=== PATIENT | male | born 1995 | race Caucasian/White ===

== ENCOUNTER 2018-04-21 19:22 | Emergency (ER) | payer SELFPAY ==
[2018-04-21] MEDS ORDERED: Sodium Chloride 0.9% 10 ML Syringe FLUSH PRN (19:42)
[2018-04-21] MEDS ORDERED: Sodium Chloride 0.9% 1,000 ML IV ONE (19:42)
[2018-04-21] MEDS ORDERED: Sodium Chloride 0.9% 2.5 ML Syringe FLUSH PRN (19:42)
--- NOTE | 2018-04-21 19:52 | EDM.PDOC ---
ED HPI GENERAL MEDICAL PROBLEM - General Chief Complaint: Abdominal Pain Stated Complaint: PAIN ON LT SIDE Time Seen by Provider: 04/21/18 19:48 Source of Information: Reports: Patient History Limitations: Reports: No Limitations - History of Present Illness INITIAL COMMENTS - FREE TEXT/NARRATIVE: HISTORY AND PHYSICAL: History of present illness: Patient 22-year-old male here with complaint of left-sided abdominal pain that started this morning. He states the pain started up in the left lower rib and has now spread full left side of his abdomen. Patient states that he has had watery diarrhea the past 2 days. He denies any fevers, chills, nausea, vomiting , cough, chest pain, shortness of breath, hematochezia, melena. He denies any previous abdominal surgeries. Patient recently moved here from [place] and has no primary care provider. Review of systems: As per history of present illness and below otherwise all systems reviewed and negative. Past medical history: Hypertension Surgical history: As per history of present illness and as reviewed below otherwise noncontributory. Social history: No reported history of drug or alcohol abuse. Family history: As per history of present illness and as reviewed below otherwise noncontributory. Physical exam: General: Patient sitting comfortably in no acute distress and nontoxic appearing HEENT: Atraumatic, normocephalic, pupils reactive, negative for conjunctival pallor or scleral icterus, mucous membranes moist, throat clear, neck supple, nontender, trachea midline. No meningeal signs. Lungs: Clear to auscultation, breath sounds equal bilaterally, chest nontender. Heart: S1S2, regular, negative for clicks, rubs, or overt murmur. Abdomen: Patient has moderate left lower and left upper tenderness to palpation. He has significant tenderness to palpation of the left lower ribs. Obese, Soft, nondistended, Negative for masses or hepatosplenomegaly. Left CVA tenderness. Pelvis: Stable nontender. Genitourinary: Deferred. Rectal: Deferred. Extremities: Atraumatic, negative for cords or calf pain. Neurovascular unremarkable. Neuro: Awake, alert, oriented. Cranial nerves II through XII unremarkable. Cerebellum unremarkable. Motor and sensory unremarkable throughout. Exam nonfocal. Notes: Diagnostics: CBC, CMP, UA CT abdomen/pelvis Therapeutics: 1 L normal saline IV Toradol 30mg IV Prescriptions: None Impression: Gastroenteritis Plan: 1. Drink plenty of fluids and bland food as tolerated 2. Follow up with primary care provider 3. Return to ED as needed as discussed Definitive disposition and diagnosis as appropriate pending reevaluation and review of above. LLQ Pain Score (Numeric/FACES): 7 - Related Data Allergies Allergy/AdvReac Type Severity Reaction Status Date / Time No Known Allergies Allergy Verified 04/21/18 19:38 Home Meds: Home Meds . [No Known Home Meds] 04/21/18 [History] Past Medical History HEENT History: Reports: None Cardiovascular History: Reports: Hypertension Respiratory History: Reports: Asthma Gastrointestinal History: Reports: None Genitourinary History: Reports: None Musculoskeletal History: Reports: None Neurological History: Reports: None Psychiatric History: Reports: None Endocrine/Metabolic History: Reports: None Dermatologic History: Reports: None - Infectious Disease History Infectious Disease History: Reports: Chicken Pox - Past Surgical History Male Surgical History: Reports: None Social & Family History - Family History Family Medical History: Noncontributory - Tobacco Use Smoking Status *Q: Current Every Day Smoker Years of Tobacco use: 2 Packs/Tins Daily: 0.5 Second Hand Smoke Exposure: Yes - Recreational Drug Use Recreational Drug Use: No ED ROS GENERAL - Review of Systems Review Of Systems: ROS reveals no pertinent complaints other than HPI. ED EXAM, GI/ABD - Physical Exam Exam: See Below (See dictation) Course - Vital Signs Last Recorded V/S: Last Vital Signs Temp 37.1 C 04/21/18 19:38 Pulse 96 04/21/18 19:38 Resp 18 04/21/18 19:38 BP 156/96 H 04/21/18 19:38 Pulse Ox 97 04/21/18 19:38 - Orders/Labs/Meds Orders: Active Orders 24 hr Category Date Time Status Abdomen Pelvis w Cont [CT] Stat Exams 04/21/18 19:53 Taken UA W/MICROSCOPIC [URIN] Stat Lab 04/21/18 21:38 Ordered Sodium Chloride 0.9% [Saline Flush] Med 04/21/18 19:42 Active 10 ml FLUSH ASDIRECTED PRN Sodium Chloride 0.9% [Saline Flush] Med 04/21/18 19:42 Active 2.5 ml FLUSH ASDIRECTED PRN Saline Lock Insert [OM.PC] Stat Oth 04/21/18 19:41 Ordered Medication Orders Sodium Chloride (Saline Flush) 10 ml FLUSH ASDIRECTED PRN PRN Reason: Keep Vein Open Last Admin: 04/21/18 20:17 Dose: 10 ml Sodium Chloride (Saline Flush) 2.5 ml FLUSH ASDIRECTED PRN PRN Reason: Keep Vein Open Last Admin: 04/21/18 20:18 Dose: 2.5 ml Labs: Laboratory Tests 04/21/18 04/21/18 04/21/18 Range/Units 20:05 20:05 21:38 WBC 9.08 (4.0-11.0) K/uL RBC 5.31 (4.50-5.90) M/uL Hgb 17.9 H (13.0-17.0) g/dL Hct 47.6 (38.0-50.0) % MCV 89.6 (80.0-98.0) fL MCH 33.7 H (27.0-32.0) pg MCHC 37.6 H (31.0-37.0) g/dL RDW Std Deviation 41.8 (28.0-62.0) fl RDW Coeff of Ezra 13 (11.0-15.0) % Plt Count 238 (150-400) K/uL MPV 11.30 (7.40-12.00) fL Neut % (Auto) 48.1 (48.0-80.0) % Lymph % (Auto) 31.6 (16.0-40.0) % [place] % (Auto) 12.7 (0.0-15.0) % Eos % (Auto) 7.2 H (0.0-7.0) % Baso % (Auto) 0.4 (0.0-1.5) % Neut # (Auto) 4.4 (1.4-5.7) K/uL Lymph # (Auto) 2.9 H (0.6-2.4) K/uL [place] # (Auto) 1.2 H (0.0-0.8) K/uL Eos # (Auto) 0.7 (0.0-0.7) K/uL Baso # (Auto) 0.0 (0.0-0.1) K/uL Nucleated RBC % 0.0 /100WBC Nucleated RBCs # 0 K/uL Sodium 138 (136-148) mmol/L Potassium 3.8 (3.5-5.1) mmol/L Chloride 102 (98-107) mmol/L Carbon Dioxide 30.1 (21.0-32.0) mmol/L BUN 13 (7.0-18.0) mg/dL Creatinine 1.1 (0.8-1.3) mg/dL Est Cr Clr Drug Dosing 121.43 mL/min Estimated GFR (MDRD) > 60.0 ml/min Glucose 140 H (74-106) mg/dL Calcium 9.3 (8.5-10.1) mg/dL Total Bilirubin 0.5 (0.2-1.0) mg/dL AST 37 (15-37) IU/L ALT 101 H (14-63) IU/L Alkaline Phosphatase 106 (46-116) U/L Total Protein 7.6 (6.4-8.2) g/dL Albumin 4.3 (3.4-5.0) g/dL Globulin 3.3 (2.0-3.5) g/dL Albumin/Globulin Ratio 1.3 (1.3-2.8) Lipase 261 (73-393) U/L Urine Color YELLOW Urine Appearance CLEAR Urine pH 6.0 (5.0-8.0) Ur Specific [place] <= 1.005 (1.001-1.035) Urine Protein NEGATIVE (NEGATIVE) mg/dL Urine Glucose (UA) NEGATIVE (NEGATIVE) mg/dL Urine Ketones NEGATIVE (NEGATIVE) mg/dL Urine Occult Blood NEGATIVE (NEGATIVE) Urine Nitrite NEGATIVE (NEGATIVE) Urine Bilirubin NEGATIVE (NEGATIVE) Urine Urobilinogen 0.2 (<2.0) EU/dL Ur Leukocyte Esterase NEGATIVE (NEGATIVE) Urine RBC 0-1 (0-2/HPF) Urine WBC 0-2 (0-5/HPF) Ur Epithelial Cells RARE (NONE-FEW) Urine Bacteria FEW (NEGATIVE) Meds: Medications Generic Name Dose Route Start Last Admin Trade Name Freq PRN Reason Stop Dose Admin Sodium Chloride 10 ml 04/21/18 19:42 04/21/18 20:17 Saline Flush FLUSH 10 ml ASDIRECTED PRN Administration Keep Vein Open Sodium Chloride 2.5 ml 04/21/18 19:42 04/21/18 20:18 Saline Flush FLUSH 2.5 ml ASDIRECTED PRN Administration Keep Vein Open Discontinued Medications Generic Name Dose Route Start Last Admin Trade Name [place] PRN Reason Stop Dose Admin Sodium Chloride 1,000 mls @ 999 mls/hr 04/21/18 19:42 04/21/18 20:17 Normal Saline IV 04/21/18 20:42 999 mls/hr STAT ONE Administration Iopamidol 100 ml 04/21/18 21:28 04/21/18 21:28 Isovue Multipack-370 (76%) IVPUSH 04/21/18 21:29 100 ml ONETIME STA Administration Ketorolac Tromethamine 30 mg 04/21/18 20:48 04/21/18 20:51 Toradol IVPUSH 04/21/18 20:49 30 mg ONETIME ONE Administration Departure - Departure Time of Disposition: 21:52 Disposition: Home, Self-Care 01 Condition: Good Clinical Impression: Gastroenteritis - Discharge Information Referrals: PCP,None [Primary Care Provider] - Forms: ED Department Discharge Additional Instructions: The following information is given to patients seen in the emergency department who are being discharged to home. This information is to outline your options for follow-up care. We provide all patients seen in our emergency department with a follow-up referral. The need for follow-up, as well as the timing and circumstances, are variable depending upon the specifics of your emergency department visit. If you don't have a primary care physician on staff, we will provide you with a referral. We always advise you to contact your personal physician following an emergency department visit to inform them of the circumstance of the visit and for follow-up with them and/or the need for any referrals to a consulting specialist. The emergency department will also refer you to a specialist when appropriate. This referral assures that you have the opportunity for follow-up care with a specialist. All of these measure are taken in an effort to provide you with optimal care, which includes your follow-up. Under all circumstances we always encourage you to contact your private physician who remains a resource for coordinating your care. When calling for follow-up care, please make the office aware that this follow-up is from your recent emergency room visit. If for any reason you are refused follow-up, please contact the [facility] Emergency Department at and asked to speak to the emergency department charge nurse. SAMANTHA [facility] [address] [place] [address] [facility] [address] [place] [address] 1. Drink plenty of fluids and bland food as tolerated 2. Follow up with primary care provider 3. Return to ED as needed as discussed - My Orders Last 24 Hours: My Active Orders 04/21/18 19:41 Saline Lock Insert [OM.PC] Stat 04/21/18 19:42 Sodium Chloride 0.9% [Saline Flush] 10 ml FLUSH ASDIRECTED PRN Sodium Chloride 0.9% [Saline Flush] 2.5 ml FLUSH ASDIRECTED PRN 04/21/18 19:53 Abdomen Pelvis w Cont [CT] Stat 04/21/18 21:38 UA W/MICROSCOPIC [URIN] Stat - Assessment/Plan Last 24 Hours: My Active Orders 04/21/18 19:41 Saline Lock Insert [OM.PC] Stat 04/21/18 19:42 Sodium Chloride 0.9% [Saline Flush] 10 ml FLUSH ASDIRECTED PRN Sodium Chloride 0.9% [Saline Flush] 2.5 ml FLUSH ASDIRECTED PRN 04/21/18 19:53 Abdomen Pelvis w Cont [CT] Stat 04/21/18 21:38 UA W/MICROSCOPIC [URIN] Stat
[2018-04-21] MEDS ORDERED: Ketorolac 30 MG/ML SDV IVPUSH ONE (20:48)
[2018-04-21 20:53] LABS: CHLORIDE,CL 102 mmol/L (98-107); SODIUM,NA 138 mmol/L (136-148)
[2018-04-21] MEDS ORDERED: Iopamidol 755 MG/ML 500 ML Multipack Bottle IVPUSH STA (21:28)
--- NOTE | 2018-04-22 15:22 | CT ---
EXAM DATE: 04/21/18 PATIENT'S AGE: 22 Patient: DARCI MARTIN Facility: [place], [place] Site . Site : 1995 Study: CT Abdomen/Pelvis [id number]/26/2018 9:30:50 PM Ordering Physician: Doctor Mccann Final Report: Indication: Left upper and left lower abdominal pain. Technique: Multiple contiguous axial images were obtained from the lung bases through the symphysis pubis after the intravenous administration of 100 milliliters of Isovue 370. Please note that all CT scans at this facility use dose modulation, iterative reconstruction, and/or weight-based dosing when appropriate to reduce radiation dose to as low as reasonably achievable. Comparison: None. Findings: The lung bases are clear. No infiltrate, pleural effusion, or pneumothorax is identified. The heart is normal in size. The liver, gallbladder, spleen, pancreas, adrenals, and kidneys are normal. No intrahepatic biliary ductal dilatation is identified. No hydronephrosis is seen. In the pelvis, the urinary bladder has a grossly normal morphology. No free air or free fluid is identified within the abdomen or pelvis. The small and large bowel are normal in caliber. The appendix is clearly seen and is normal in caliber. No periappendiceal fat stranding or fluid collections are identified. A moderate amount of stool is identified within the colon. No lytic or blastic lesions of the spine are identified. Bilateral fat containing inguinal hernias are identified, greater on the left than the right. The aorta is normal in caliber. Impression: Moderate amount of stool. Otherwise, essentially normal CT scan the abdomen and pelvis with contrast Please note that all CT scans at this facility use dose modulation, iterative reconstruction, and/or weight-based dosing when appropriate to reduce radiation dose to as low as reasonably achievable. Dictated by Ofelia Lemus MD @ Apr 21 2018 9:43PM (Electronic Signature) Report Signed by Proxy. MTDD
== END 2018-04-21 22:06 | disposition home or self-care (01) ==
LOC: MW.ED 19:22
DX: K52.9 Noninfective gastroenteritis and colitis, unspecified (principal); F17.210 Nicotine dependence, cigarettes, uncomplicated
CPT/HCPCS: 36415; 74177; 80053; 81001; 83690; 85025; 96361; 96374; 99284; J1885; J7040; Q9967; 99283